=== PATIENT | male | born 1965 | race Caucasian/White ===

== ENCOUNTER 2024-05-17 11:01 | Emergency (ER) | payer OTHER, BC ==
[~2024-05-17] VITALS: Ht 180.3 cm; Wt 97.1 kg
[2024-05-17 11:01] VITALS: BP_SYST 129; PULSE 78; RESP 18; TEMP 97.2; O2SAT 100
== END 2024-05-17 11:37 | disposition home or self-care (01) ==
LOC: SED 11:01
DX: S20.219A Contusion of unspecified front wall of thorax, initial encounter (principal); S60.221A Contusion of right hand, initial encounter; V89.2XXA Person injured in unspecified motor-vehicle accident, traffic, initial encounter; Y93.89 Activity, other specified; Y92.89 Other specified places as the place of occurrence of the external cause; Y99.8 Other external cause status
CPT/HCPCS: 99283